=== PATIENT | male | born 1985 ===

== ENCOUNTER → 2017-06-28 | Emergency (ER) | payer OTHER ==
[~2017-06-28] VITALS: Ht 167.6 cm; Wt 90.7 kg
[~2017-06-28] MED LIST: CIPRO500 MG PO; INTESTINEX680 MG; INTESTINEX680 MG PO; METRONIDAZOLE500 MG PO; RANITIDINE HCL150 M1 PO; ZANTAC300 MG; ZANTAC300 MG PO
== END | disposition home or self-care (01) ==
LOC: ER 20:17
DX: B34.9 Viral infection, unspecified (principal)

== ENCOUNTER 2017-08-28 10:18 | Inpatient (IN) | payer OTHER ==
[~2017-08-28] VITALS: Ht 170.2 cm; Wt 94.3 kg
[2017-08-31] MEDS ORDERED: CIPRO500 MG PO (08:59)
[2017-08-31] MEDS ORDERED: PEPCID20 MG PO (09:00)
[2017-08-31] MEDS ORDERED: FLAGYL500MG PO (09:00)
== END 2017-08-31 09:19 | disposition home or self-care (01) | DRG 387 ==
LOC: ER 10:18 → MEDJ 19:32
PROC: BW25Y0Z Computerized Tomography (CT Scan) of Chest, Abdomen and Pelvis using Other Contrast, Unenhanced and Enhanced (ICD-10-PCS; principal; 2017-08-28)
DX: K51.518 Left sided colitis with other complication (principal); E86.0 Dehydration

== ENCOUNTER 2018-06-07 21:07 | Emergency (ER) | payer OTHER ==
[~2018-06-07] VITALS: Ht 167.6 cm; Wt 93.4 kg
[~2018-06-07 21:07] MED LIST changes: +FLAGYL500MG PO; +PEPCID20 MG PO
== END 2018-06-07 23:00 | disposition home or self-care (01) ==
LOC: ER 21:07
DX: J11.1 Influenza due to unidentified influenza virus with other respiratory manifestations (principal)